=== PATIENT | male | born 1940 | race Caucasian/White ===

== ENCOUNTER 2022-10-17 08:51 | Outpatient (CLI) | payer MEDICARE, BC, OTHER ==
[2022-10-17] MEDS ORDERED: Magnevist 469MG/ML 20 ML VIAL ONE (16:57)
== END 2022-10-17 08:52 | disposition home or self-care (01) ==
LOC: CSHMRI 08:51
PROVIDERS: ATTEND Urology
DX: R97.20 Elevated prostate specific antigen [PSA] (principal); N40.2 Nodular prostate without lower urinary tract symptoms
CPT/HCPCS: 72197; 82565; A9579

== ENCOUNTER 2022-10-17 11:25 | Emergency (ER) | payer MEDICARE, BC, OTHER ==
[2022-10-17] MEDS ORDERED: diphenhydrAMINE 50 MG/ML VIAL ONE (11:45)
[2022-10-17] MEDS ORDERED: Famotidine/PF 20 mg/2ml Vial ONE (11:45)
[2022-10-17] MEDS ORDERED: methylPREDNISolone Sod Succ/PF 125 MG/2 ML VIAL ONE (11:45)
== END 2022-10-17 13:03 | disposition home or self-care (01) ==
LOC: CSHERS 11:25
DX: L24.9 Irritant contact dermatitis, unspecified cause (principal); T50.8X5A Adverse effect of diagnostic agents, initial encounter; E78.00 Pure hypercholesterolemia, unspecified; I10 Essential (primary) hypertension; F17.210 Nicotine dependence, cigarettes, uncomplicated
CPT/HCPCS: 96374; 96375; J1200; J2930; S0028